=== PATIENT | female | born 1975 | race Caucasian/White ===

== ENCOUNTER → 2019-10-04 12:47 | Outpatient (CLI) | payer OTHER, SELFPAY ==
--- NOTE | ~2019-10-04 | MR_ITS ---
EXAMINATION: MR lumbar spine wo con DATE: 10/04/2019 13:23 INDICATION: Low back pain. Bilateral leg pain. TECHNIQUE: Magnetic resonance imaging (MRI) of the lumbar spine was performed without intravenous con trast. Sequences included sagittal T2-weighted FSE, sagittal T2-weighted FS FSE, sagittal T1-weighted FSE, and axial T2-weighted FSE. COMPARISON: None FINDINGS: Bone alignment is normal. Vertebral body heights and intervertebral disc heights are normal . The distal spinal cord signal intensity is normal. The conus medullaris is at L1. The following dis c levels are specifically discussed: L1-L2: The disc does not extend beyond the endplate margin. There is no facet joint osteoarthritis. T here is no neural foraminal stenosis. There is no central canal stenosis. L2-L3: The disc does not extend beyond the endplate margin. There is mild bilateral facet joint osteo arthritis. There is no neural foraminal stenosis. There is no central canal stenosis. L3-L4: The disc does not extend beyond the endplate margin. There is no facet joint osteoarthritis. T here is no neural foraminal stenosis. There is no central canal stenosis. L4-L5: The disc is mildly bulging. There is no facet joint osteoarthritis. There is mild bilateral ne ural foraminal stenosis. There is no central canal stenosis. L5-S1: The disc does not extend beyond the endplate margin. There is no facet joint osteoarthritis. T here is no neural foraminal stenosis. There is no central canal stenosis. IMPRESSION: 1. Mild lumbar spondylosis. Reviewed, dictated and finalized at location B. IMPRESSION: 1. Mild lumbar spondylosis.
== END ==
DX: M54.5 Low back pain (principal); M47.816 Spondylosis without myelopathy or radiculopathy, lumbar region
CPT/HCPCS: 72148

== ENCOUNTER 2022-10-08 17:20 | Emergency (ER) | payer BC, SELFPAY ==
--- NOTE | 2022-10-08 17:38 | ED.HA ---
HPI - Headache General Chief Complaint: Headache Stated Complaint: Migraine Source: patient and RN notes reviewed History of Present Illness HPI Narrative: 46 yo F presents to urgent care stating she has been having right lateral/posterior neck pain that radiates up into her head. Pt states she now has a right frontal GUNTER with right sided blurry vision, photophobia, nausea. Pt states this all started on Monday evening. Pt reports having a massage on Monday by normal masseuse. Pt also reports having congestion x 1 week and she feels like she has a sinus infection b/c she will get these symptoms with a sinus infection. Pt has attempted taking ibuprofen without relief. Related Data Home Medications Medication Instructions Recorded Confirmed aspirin 81 mg chewable tablet 81 mg PO DAILY 10/08/22 10/08/22 atorvastatin 10 mg tablet 10 mg PO DAILY 10/08/22 10/08/22 ergocalciferol (vitamin D2) 1,250 1,250 mcg PO DIRECTED 10/08/22 10/08/22 mcg (50,000 unit) capsule levothyroxine 100 mcg tablet 100 mcg PO DIRECTED 10/08/22 10/08/22 lorazepam 0.5 mg tablet 0.5 mg PO DIRECTED 10/08/22 10/08/22 magnesium oxide 400 mg (241.3 mg 400 mg PO DIRECTED 10/08/22 10/08/22 magnesium) tablet metoprolol succinate 100 mg 100 mg PO DIRECTED 10/08/22 10/08/22 tablet,extended release 24 hr Allergies Allergy/AdvReac Type Severity Reaction Status Date / Time morphine Allergy Intermediate Other Verified 10/08/22 17:50 Contrast Media Allergy Mild RED, ITCHY Uncoded 04/28/18 12:29 RASH Review of Systems Review of Systems: CONSTITUTIONAL: Denies fever, chills, or sweats. EYES: Denies visual changes, redness, or discharge. ENT: congestion, facial pressure CARDIOVASCULAR: Denies chest pain, palpitations, or edema. RESPIRATORY: Denies cough or dyspnea. GASTROINTESTINAL: Denies abdominal pain, nausea, vomiting, or diarrhea. GENITOURINARY: Denies dysuria or hematuria. SKIN: Denies rash or itching. MUSCULOSKELETAL: Denies back pain, joint pain, or myalgia. NEUROLOGIC: Headache Pertinent positives per HPI. PMFSH Comments At the time of my signature, I reviewed and agree with the nursing past medical, surgical, social, and family history. There is no relevant family history pertinent to the patient complaint. Exam Narrative: GENERAL: This is a well-nourished, well-developed patient, in no apparent distress. HEAD: normocephalic, atraumatic. EYES: Sclera clear/white. Vision is grossly intact. EARS: External ears normal, auditory canals clear and without drainage, TMs normal without perforation. Hearing grossly intact. NOSE: Congested and rhinorrhea THROAT: Mucous membranes moist, posterior pharynx clear. NECK: Neck supple, tender to right/lateral/posterior neck. Pt able to look down and look left without issues. Pt is limited when she rotates her neck to the right and when she looks upward due to pain. CARDIOVASCULAR: Regular rate and rhythm without murmurs, gallops, or rubs. RESPIRATORY: Clear to auscultation. Breath sounds equal bilaterally. No wheezes, rales, or rhonchi. GASTROINTESTINAL: Abdomen soft, non-tender, nondistended. Bowel sounds are active. No hepato-splenomegaly, or palpable masses. No guarding. SKIN: warm, intact with no suspicious lesions or rash, good texture and turgor. NEURO: awake, alert, and oriented to person, place and time. There were no obvious focal neurologic abnormalities. EXTREMITIES: No clubbing, cyanosis, or edema. No joint tenderness, effusion, or edema noted. BACK: Nontender without deformity or crepitus. No flank tenderness. Course Course Level of Care: Express Care Visit Vital Signs Vital signs: Vital Signs Temperature 98 F 10/08/22 17:40 Pulse Rate 65 10/08/22 17:40 Respiratory Rate 14 10/08/22 17:40 Blood Pressure 121/72 10/08/22 17:40 Pulse Oximetry 97 10/08/22 17:40 Oxygen Delivery Room Air 10/08/22 17:40 Temperature 98 F 10/08/22 17:40 Pul
[2022-10-08 17:40] VITALS: BP 121/72; PULSE 65; RESP 14; TEMP 36.6; O2SAT 97
== END 2022-10-08 18:02 | disposition home or self-care (01) ==
PROVIDERS: Emergency Provider Nurse Practitioner Family; PCP Family Medicine
DX: G43.909 Migraine, unspecified, not intractable, without status migrainosus (principal); J01.90 Acute sinusitis, unspecified; Z79.82 Long term (current) use of aspirin; E78.00 Pure hypercholesterolemia, unspecified; I10 Essential (primary) hypertension; F41.9 Anxiety disorder, unspecified
CPT/HCPCS: 99213; G0463